=== PATIENT | female | born 1990 | race Caucasian/White ===

== ENCOUNTER 2020-07-20 10:38 | Emergency (ER) | payer OTHER ==
[2020-07-20 11:00] VITALS: BP 118/76; PULSE 85; TEMP 98.5; BMI 23.1
[2020-07-20 12:36] LABS: PH,URINE 7.5 (5.0-8.0); URINE APPEARANCE CLEAR; URINE BILIRUBIN NEGATIVE (NEGATIVE); URINE COLOR YELLOW; URINE GLUCOSE (UA) NEGATIVE (NEGATIVE); URINE KETONE NEGATIVE (NEGATIVE); URINE LEUK ESTERASE NEGATIVE (NEGATIVE); URINE NITRITE NEGATIVE (NEGATIVE); URINE PROTEIN NEGATIVE (NEGATIVE); URINE UROBILINOGEN 0.2 mg/dL (0.2-1.0)
[2020-07-20 12:37] LABS: BASO % 0.9 % (0-2.0); EOS % 1.9 % (0-4.5); HEMATOCRIT 40.8 % (32.4-45.2); MCH 29.4 pg (25.7-33.7); MCHC 34.2 g/dl (32.0-36.0); MEAN CELL VOLUME 85.8 fl (80-96); MONO % 4.5 % (3.8-10.2); NEUT % 55.7 % (42.8-82.8); PLATELET COUNT 274 K/MM3 (134-434); RBC 4.75 M/mm3 (3.60-5.2); RDW 12.7 % (11.6-15.6); WHITE BLOOD COUNT 3.4 K/mm3 (4.0-10.0)
[2020-07-20 12:39] LABS: HCG,QUALITATIVE URINE Negative
[2020-07-20 12:43] LABS: INR 0.98 (0.83-1.09); PROTHROMBIN TIME (PATIENT) 11.9 SEC (9.7-13.0)
[2020-07-20 12:46] LABS: ACTIVATED PTT 28.6 SECONDS (25.2-36.5)
[2020-07-20 12:56] LABS: CHLORIDE 106 mmol/L (98-107); SODIUM 140 mmol/L (136-145)
[2020-07-20 12:58] LABS: ALBUMIN 4.4 g/dl (3.4-5.0); CALCIUM 9.8 mg/dL (8.5-10.1)
[2020-07-20 12:59] LABS: ANION GAP 5 MMOL/L (8-16); CO2 30 mmol/L (21-32); GLUCOSE,RANDOM 86 mg/dL (74-106); MAGNESIUM 2.2 mg/dL (1.8-2.4)
[2020-07-20 13:02] LABS: CREATININE 0.8 mg/dL (0.55-1.3); SGOT/AST 32 U/L (15-37)
[2020-07-20 13:03] LABS: SGPT/ALT 39 U/L (13-61); TOT PROT 8.4 g/dl (6.4-8.2)
[2020-07-20 13:04] LABS: ALK PHOS 65 U/L (45-117)
[2020-07-20 13:05] LABS: BILIRUBIN,TOTAL 0.6 mg/dL (0.2-1)
== END 2020-07-20 15:02 | disposition home or self-care (01) ==
LOC: JER 10:38
DX: B34.9 Viral infection, unspecified (principal)
CPT/HCPCS: 36415; 71275-TC; 80053; 81003; 82550; 83735; 84484; 84703; 85025; 85610; 85730; 86900; 93005; 93010; 99284-25; Q9967

== ENCOUNTER 2022-05-01 10:25 | Inpatient (IN) | payer OTHER ==
[2022-05-01 11:19] VITALS: BMI 27.4
[2022-05-01] MEDS ORDERED: ACETAMINOPHEN INJECTION 100 ML IVPB ONE (12:16)
[2022-05-01] MEDS ORDERED: OXYTOCIN 20 UNITS in 0.9% NS 20 UNIT/1,000 ML INFUS.BAG IV ONE (12:16)
[2022-05-01] MEDS ORDERED: morphine SULFATE (PF) 1 MG/2 ML SYRINGE ONE (12:19)
[2022-05-01] MEDS ORDERED: ELECTROLYTE-148 SOLN 500 ML IV ONE (12:23)
[2022-05-01] MEDS ORDERED: CITRIC ACID/SODIUM CITRATE 30 ML UNIT-DOSE CUP PO ONE (12:23)
[2022-05-01] MEDS ORDERED: ELECTROLYTE-148 SOLN 1,000 ML IV SCH (12:30)
[2022-05-01] MEDS ORDERED: ceFAZolin SODIUM 1 GM VIAL ONE (12:40)
[2022-05-01] MEDS ORDERED: PHENYLEPHRINE HCL 10 MG/1 ML SINGLE DOSE VIAL ONE (12:42)
[2022-05-01] MEDS ORDERED: MIDAZOLAM HCL 2 MG/2 ML SINGLE DOSE VIAL ONE ×2 (13:00→13:14)
[2022-05-01] MEDS ORDERED: ONDANSETRON 4 MG/2 ML VIAL ONE (13:08)
[2022-05-01] MEDS ORDERED: ONDANSETRON 4 MG/2 ML VIAL IVPB PRN (13:32)
[2022-05-01] MEDS ORDERED: IBUPROFEN 800 MG/8 ML IJ IVPB PRN (13:32)
[2022-05-01] MEDS ORDERED: ONDANSETRON 4 MG/2 ML VIAL IVPUSH PRN (14:14)
[2022-05-01] MEDS: OXYTOCIN 20 UNITS in 0.9% NS 20 UNIT/1,000 ML INFUS.BAG IV SCH ×2 (14:30→22:33)
[2022-05-01] MEDS ORDERED: ACETAMINOPHEN 1000 MG/100 ML BAG IVPB PRN (20:00)
[2022-05-01] MEDS: SIMETHICONE 80 MG TAB.CHEW (FP) PO PRN (22:14)
[2022-05-02] MEDS: IBUPROFEN 600 MG TABLET (FP) PO PRN ×3 (06:21→21:05)
[2022-05-02] MEDS: SIMETHICONE 80 MG TAB.CHEW (FP) PO PRN ×4 (06:22→21:05)
[2022-05-02 08:14] LABS: BASO % 0.2 % (0-2.0); EOS % 1.4 % (0-4.5); HEMATOCRIT 29.9 % (32.4-45.2); LYMPH % 10.1 % (8-40); MCH 27.4 pg (25.7-33.7); MCHC 33.4 g/dl (32.0-36.0); MEAN CELL VOLUME 81.8 fl (80-96); MEAN PLT VOLUME 8.3 fl (7.5-11.1); MONO % 5.5 % (3.8-10.2); NEUT % 82.8 % (42.8-82.8); PLATELET COUNT 175 10^3/uL (134-434); RBC 3.65 M/mm3 (3.60-5.2); RDW 15.4 % (11.6-15.6); WHITE BLOOD COUNT 9.7 K/mm3 (4.0-10.0)
[2022-05-02] MEDS: oxyCODONE HCL 5 MG TABLET PO PRN ×2 (09:16→15:26)
[2022-05-02] MEDS: PRENATAL VITAMINS W/ FOLIC ACID TABLET (FP) PO SCH (09:16)
[2022-05-02] MEDS ORDERED: ACETAMINOPHEN 325 MG TABLET (FP) PO PRN (13:32)
[2022-05-02] MEDS ORDERED: BISACODYL 10 MG SUPP.RECT RC PRN (13:33)
[2022-05-02] MEDS: SENNOSIDES/DOCUSATE COMBO (SENNA PLUS) TABLET (UD) PO PRN (21:05)
[2022-05-03] MEDS: IBUPROFEN 600 MG TABLET (FP) PO PRN ×2 (03:25→10:13)
[2022-05-03] MEDS: SIMETHICONE 80 MG TAB.CHEW (FP) PO PRN ×3 (03:25→20:37)
[2022-05-03] MEDS: oxyCODONE HCL 5 MG TABLET PO PRN (07:54)
[2022-05-03] MEDS: PRENATAL VITAMINS W/ FOLIC ACID TABLET (FP) PO SCH (10:13)
[2022-05-03] MEDS: ACETAMINOPHEN 325 MG TABLET (FP) PO SCH ×3 (11:56→23:31)
[2022-05-03] MEDS: FERROUS SO4 325 MG TABLET (FP) PO SCH (12:35)
[2022-05-03] MEDS: IBUPROFEN 600 MG TABLET (FP) PO SCH ×2 (14:35→20:38)
[2022-05-03] MEDS: SENNOSIDES/DOCUSATE COMBO (SENNA PLUS) TABLET (UD) PO PRN (20:38)
[2022-05-03 20:40] VITALS: RESP 18
[2022-05-04] MEDS: SIMETHICONE 80 MG TAB.CHEW (FP) PO PRN (02:17)
[2022-05-04] MEDS: IBUPROFEN 600 MG TABLET (FP) PO SCH ×2 (02:17→11:02)
[2022-05-04] MEDS: ACETAMINOPHEN 325 MG TABLET (FP) PO SCH (06:17)
[2022-05-04 08:52] VITALS: BP 126/73; PULSE 77; TEMP 98.1
[2022-05-04] MEDS: FERROUS SO4 325 MG TABLET (FP) PO SCH (11:02)
[2022-05-04] MEDS: PRENATAL VITAMINS W/ FOLIC ACID TABLET (FP) PO SCH (11:02)
== END 2022-05-04 13:00 | disposition home or self-care (01) | DRG 540 ==
LOC: JLDR 10:25 → J3W 15:10
PROVIDERS: ADMIT Specialist; ATTEND Specialist
PROC: 10D00Z1 Extraction of Products of Conception, Low, Open Approach (ICD-10-PCS; principal; 2022-05-01)
PROC: 0UB90ZZ Excision of Uterus, Open Approach (ICD-10-PCS; 2022-05-01)
PROC: 0DNU0ZZ Release Omentum, Open Approach (ICD-10-PCS; 2022-05-01)
PROC: 0DNW0ZZ Release Peritoneum, Open Approach (ICD-10-PCS; 2022-05-01)
DX: O36.63X0 Maternal care for excessive fetal growth, third trimester, not applicable or unspecified (principal); O34.13 Maternal care for benign tumor of corpus uteri, third trimester; D25.9 Leiomyoma of uterus, unspecified; O99.62 Diseases of the digestive system complicating childbirth; K66.0 Peritoneal adhesions (postprocedural) (postinfection); Z3A.38 38 weeks gestation of pregnancy; Z37.0 Single live birth
CPT/HCPCS: 36415; 80053; 85025; 85027; 85610; 85730; 86780; 86850; 86900; 86901; 87389; 88305-TC; 88307-TC; C9803-CS; U0003; U0005